=== PATIENT | male | born 1985 | race African-American/Black ===

== ENCOUNTER 2021-01-05 22:31 | Emergency (ER) | payer BC ==
[2021-01-05 22:46] VITALS: BP 148/90; PULSE 81; TEMP 98.3; BMI 40.1
== END 2021-01-06 00:56 | disposition home or self-care (01) ==
LOC: JER 22:31
DX: S93.601A Unspecified sprain of right foot, initial encounter (principal); W22.8XXA Striking against or struck by other objects, initial encounter
CPT/HCPCS: 73630-TC-RT-FY; 99283-25